=== PATIENT | male | born 1935 | race African-American/Black ===

== ENCOUNTER 2018-09-08 09:30 | Emergency (ER) | payer MEDICARE, OTHER ==
[~2018-09-08] VITALS: Ht 180.3 cm; Wt 77.9 kg
[~2018-09-08 09:30] MED LIST: AMLO10TA80 PO; ASPI-1159 PO; DOXA2TAB2 PO; NIFE30TA8 PO; PANT40TA4 PO
[2018-09-08 12:16] LABS: BASOPHILS % 2.2 % (0.0-2.0); EOSINOPHILS % 3.8 % (0.0-5.0); HEMATOCRIT. 35.9 % (42.0-52.0); HEMOGLOBIN. 11.8 g/dL (14.0-18.0); LYMPHOCYTES % 34.3 % (20.0-50.0); MEAN CORPUSCULAR HEMOGLOBIN 33.2 pg (28.0-32.0); MEAN CORPUSCULAR VOLUME 100.9 fL (80.0-94.0); MEAN PLATELET VOLUME 9.6 fl (7.4-10.4); MONOCYTES % 8.8 % (2.0-8.0); NEUTROPHILS % 50.9 % (40.0-76.0); PLATELET 183 x1000/uL (130-400); RED BLOOD CELL COUNT 3.55 mill/uL (4.7-6.1); RED CELL DISTRIBUTION WIDTH 13.8 % (11.6-14.6)
[2018-09-08 12:24] LABS: CHLORIDE 114 mEq/L (98-107); INR 1.1; PARTIAL THROMBOPLASTIN TIME 31.7 sec (23.4-31.0); PROTHROMBIN TIME 11.4 sec (9.1-11.1)
[2018-09-08 13:07] VITALS: BP 142/55
== END 2018-09-08 13:13 | disposition home or self-care (01) ==
LOC: ER 09:30
DX: J20.9 Acute bronchitis, unspecified (principal); I11.0 Hypertensive heart disease with heart failure; I50.9 Heart failure, unspecified; Z96.659 Presence of unspecified artificial knee joint; Z79.82 Long term (current) use of aspirin
CPT/HCPCS: 36415; 71045; 83735; 83880; 84484; 93005; 99284